=== PATIENT | male | born 1945 | race Asian ===

== ENCOUNTER → 2020-03-25 | Emergency (ER) | payer OTHER ==
[~2020-03-25] VITALS: Ht 157.5 cm; Wt 68.0 kg
[2020-03-25 22:07] VITALS: BP 148/74
== END | disposition home or self-care (01) ==
LOC: EDBD 21:46 → ER 21:49
DX: S13.9XXA Sprain of joints and ligaments of unspecified parts of neck, initial encounter (principal); S23.3XXA Sprain of ligaments of thoracic spine, initial encounter; I10 Essential (primary) hypertension; V43.52XA Car driver injured in collision with other type car in traffic accident, initial encounter; Y93.89 Activity, other specified; Y92.89 Other specified places as the place of occurrence of the external cause; Y99.8 Other external cause status
CPT/HCPCS: 72125; 72128